=== PATIENT | male | born 1970 | race Two or more races ===

== ENCOUNTER 2019-02-20 12:31 | Emergency (ER) | payer OTHER ==
[~2019-02-20] VITALS: Ht 177.8 cm; Wt 99.8 kg
[2019-02-20 13:03] VITALS: BP 105/68
[2019-02-20] MEDS ORDERED: TETANUS-DIPTH-ACEL PERTUSSIS 0.5ML SYRG IM ONE (13:45)
[2019-02-20] MEDS ORDERED: IBUPROFEN 800 MG TAB PO ONE (13:45)
== END 2019-02-20 14:12 | disposition home or self-care (01) ==
LOC: ER 12:31
DX: S91.331A Puncture wound without foreign body, right foot, initial encounter (principal); I10 Essential (primary) hypertension; W22.8XXA Striking against or struck by other objects, initial encounter; Y93.89 Activity, other specified; Y92.89 Other specified places as the place of occurrence of the external cause; Y99.0 Civilian activity done for income or pay
CPT/HCPCS: 90471; 90715